=== PATIENT | male | born 1955 | race Hispanic/Latino ===

== ENCOUNTER 2021-03-04 06:26 | Emergency (ER) | payer MEDICARE ==
--- NOTE | 2021-03-07 13:20 | Electrocardiograph Report ---
[facility] Test Date: 2021-03-02 Test Time: 20:10:40 Pat Name: TO CHAVIS Department: Room: Gender: M Risk Control Field Representative: SHADI : 1955 Requested By: JONI BERNAL Order Number: [id number] Reading MD: Jazzmine Sauceda Measurements Intervals [place] Rate: 90 P: 61 ND: 154 QRS: -75 QRSD: 102 T: 58 QT: 343 QTc: 421 Interpretive Statements Sinus rhythm Left axis deviation Low voltage QRS No previous ECG available for comparison Electronically Signed On 03-07-2021 13:20:32 EDT by Jazzmine Sauceda
== END 2021-03-04 19:07 | disposition left against medical advice (07) ==
LOC: ED 06:26
DX: R07.89 Other chest pain (principal); Z53.21 Procedure and treatment not carried out due to patient leaving prior to being seen by health care provider
CPT/HCPCS: 93005

== ENCOUNTER 2022-02-09 18:15 | Emergency (ER) | payer MEDICARE ==
[2022-02-09 20:25] LABS: Basophils # (Auto) 0.1 K/mm3 (0.0-0.1); Eosinophils # (Auto) 0.2 K/mm3 (0.0-0.4); Eosinophils % (Auto) 3.6 % (0.0-4.3); Hematocrit 42.4 % (35.5-45.6); Hemoglobin 14.2 gm/dl (11.8-15.2); Lymphocytes # (Auto) 1.6 K/mm3 (1.2-5.4); Mean Corpuscular HGB Conc 34 % (32-34); Mean Corpuscular Volume 94 fl (84-94); Monocytes # (Auto) 0.4 K/mm3 (0.0-0.8); Monocytes % (Auto) 7.2 % (0.0-7.3); Platelet Count 277 K/mm3 (140-440); Red Blood Count 4.52 M/mm3 (3.65-5.03); Red Cell Distribution Width 16.5 % (13.2-15.2)
[2022-02-09 20:38] LABS: BUN/Creatinine Ratio 11; Blood Urea Nitrogen 12 mg/dL (9-20); Calcium 9.3 mg/dL (8.4-10.2); Hemolysis Index 4
--- NOTE | 2022-02-09 23:54 | Emergency Department Report ---
ED Psych HPI - General Chief Complaint: Psych Stated Complaint: PSYCH/SI Time Seen by Provider: 02/09/22 23:16 Source: patient Mode of arrival: Ambulatory - History of Present Illness Initial Comments: Mr. Kumar is a 67-year-old male with a history of anxiety and bipolar who now presents with depression and suicidal ideation has been going on for about the last 3 to 4 days progressively getting worse. Patient reported that he has been taking his medication as prescribed. Patient denies any homicidal ideation or thoughts. No fever or chills reported. No other modifying or associated factors noted. MD Complaint: suicidal ideation, feels depressed - Related Data Allergies Allergy/AdvReac Type Severity Reaction Status Date / Time No Known Allergies Allergy Unverified 03/02/21 05:24 ED Review of Systems ROS: Stated complaint: PSYCH/SI Other details as noted in HPI Comment: All other systems reviewed and negative Psychiatric: depression, suicidal thoughts. denies: homicidal thoughts ED Past Medical Hx - Past Medical History Previous Medical History?: Yes Hx Hypertension: Yes Hx Seizures: Yes Hx Psychiatric Treatment: Yes (depression, SI) Hx COPD: Yes Additional medical history: Afib - Surgical History Past Surgical History?: No ED Physical Exam - General Limitations: No Limitations General appearance: alert, in no apparent distress - Head Head exam: Present: atraumatic, normal inspection - Eye Eye exam: Present: normal appearance Pupils: Present: normal accommodation - ENT ENT exam: Present: normal exam, normal orophraynx, mucous membranes dry - Neck Neck exam: Present: normal inspection, full ROM. Absent: tenderness - Respiratory Respiratory exam: Present: normal lung sounds bilaterally. Absent: respiratory distress, accessory muscle use - Cardiovascular Cardiovascular Exam: Present: regular rate, normal rhythm, normal heart sounds - GI/Abdominal GI/Abdominal exam: Present: soft, normal bowel sounds. Absent: distended, tenderness - Extremities Exam Extremities exam: Present: normal inspection, full ROM, normal capillary refill. Absent: pedal edema - Back Exam Back exam: Present: tenderness - Neurological Exam Neurological exam: Present: alert, oriented X3 - Psychiatric Psychiatric exam: Present: normal affect, normal mood - Skin Skin exam: Present: warm, normal color ED Course Vital Signs 02/09/22 23:43 O2 Sat by Pulse 98 Oximetry ED Medical Decision Making - Lab Data Result diagrams: 02/09/22 19:44 02/09/22 19:44 - Medical Decision Making Here with depression and feeling and suicidal thoughts--differential diagnosis, including but not limited to: Encounter for behavioral health screening examination, encounter for medical screening examination--Due to these will go ahead and other routine labs studies including CBC, CMP and UA with UDS and thyroid profile in anticipation for mental health evaluation. Assessment and plan: here with concern with depressive feeling and suicidal ideation --but noted with reassuring vital signs, in no acute distress, who is cooperative, ANO x3, not homicidal but suicidal. At this point in time, this patient is cleared medically for psychiatry evaluation and recommendation. I will go ahead and order a 1013. He has not demonstrated any witnessed behavior here in the ED that would be consistent with acute decompensated psychosis. I have ordered mental health evaluation. Will go ahead and order typical laboratory studies in anticipation of mental health requests. Laboratory studies are reviewed and are unremarkable at this time. Awaiting mental health consultation and evaluation. Ultimate disposition as per mental health team. At this point in time, this patient does not appear to have an immediate medical contraindication to psychiatric admission, evaluation, consultation and placement. Patient has had his 1013 filled out by myself. Holding orders initiated. COVID swab ordered in anticipation of psychiatric placement. As needed medications are ordered. Patient remained suitable at this time for psychiatric placement, consultation and disposition. He does not appear to have an emergent medical condition present at this time. Critical care attestation.: If time is entered above; I have spent that time in minutes in the direct care of this critically ill patient, excluding procedure time. ED Disposition Clinical Impression: Suicide ideation Depression Qualifiers: Depression Type: unspecified Qualified Code(s): F32.A - Depression, unspecified Disposition: 67 [facility] Is pt being admited?: No Does the pt Need Aspirin: No Condition: Stable
[2022-02-10 00:09] LABS: Alanine Aminotransferase 17 units/L (7-56); Albumin 4.8 g/dL (3.9-5)
[2022-02-10 00:19] LABS: Free T4 (Free Thyroxine) 1.27 ng/dL (0.76-1.46)
[2022-02-10 00:20] LABS: Bilirubin,Direct < 0.2 mg/dL (0-0.2)
[2022-02-10 08:51] LABS: Amphetamine Screen,Urine Negative; Benzodiazepines Screen,Urine Negative; Cannabinoid Screen,Urine Negative; Cocaine Screen,Urine Negative; Methadone Screen,Urine Negative; Opiate Screen,Urine Negative
[2022-02-10 10:06] LABS: Bilirubin,Urine Negative (Negative); Color,Urine Straw (Yellow)
[2022-02-10 10:07] LABS: Blood,Urine 2+ (Negative); Urobilinogen,Urine < 2.0 mg/dL (<2.0)
--- NOTE | 2022-02-10 11:44 | Consultation ---
History of Present Illness - Reason for Consult Consult date: 02/10/22 Reason for consult: SI - History of Present Psychiatric Illness The patient was seen today. He is calm and cooperative. He is conversational. he says he's from [place], [place], but here with his home provider. The patient says he had been feeling a little depressed. He says he has a history of schi zophrenia. The patient says he takes clozaril, klonopin and prozac. The patient also says he has a history of heart murmurs. He says he's compliant with all of his medications. The patient says "they work pretty good to keep me stable." The patient currently denies SI/HI. He says "I feel much better now, and I'm not feeling like that." He also denies hallucinations of any kind. PAST PSYCHIATRIC HISTORY Diagnoses:Schizophrenia Suicide attempts or Self-harm behavior: Denies Prior psychiatric hospitalizations: Yes Substance Abuse history: Denies Previous psychiatric medications tried: clozaril, prozac, klonopin Outpatient treatment: Yes PAST MEDICAL HISTORY: none reported Family Psychiatric History: None reported or documented SOCIAL HISTORY Marital Status: Single Living Arrangements: Home provider Employment Status: Disabled Access to guns/weapons: none reported Education: History of Abuse: none reported Legal History: Yes REVIEW OF SYSTEMS Constitutional: Negative for weight loss ENT: Negative for stridor Respiratory: Negative for cough or hemoptysis All other systems reviewed and are negative MENTAL STATUS EXAMINATION General Appearance and Behavior: Age appropriate, fair hygiene, wearing appropriate clothes, good eye contact, cooperative with questioning Cooperation: Participating Psychomotor Behavior: Psychomotor normal Mood: better Affect and affective range: Euthymic Thought Process: Goal directed Thought Content: None Speech: normal tone and pace Suicidal Ideation: Denies Homicidal Ideation: Denies HI Hallucinations: Denies Delusions: None elicited Impulse Control: Limited Insight and Judgment: Normal Memory: Limited Attention: normal Orientation: Alert, oriented, Assessment and Plan (1) Major Depressive Disorder RECOMMENDATIONS d/c 1013 Continue home medications Risks, benefits and alternatives of medications discussed with the patient, questions answered and consent obtained from patient. PSYCHOTHERAPY: Supportive psychotherapy provided MEDICAL: Per primary team DELIRIUM PRECAUTIONS: Please re-orient patient frequently, keep lights on during the day, and minimize benzodiazepines and opiates as these medications could worsen patient's confusion. POULTRY KILLER: Per Medical Team DISPOSITION: Do not recommend acute psychiatric inpatient treatment. The patient understands that if SI/HI return he is to seek immediate assistance. FOLLOW-UP: Will sign off. Boarding Kennel Or Cattery Operator to give safety plan and all necessary resources. Thank you for the consult. Please contact with any questions and/or concerns. Case staffed with Dr. Lewis Medications and Allergies Allergies Allergy/AdvReac Type Severity Reaction Status Date / Time No Known Allergies Allergy Unverified 03/02/21 05:24 Mental Status Exam - Vital signs Last Vital Signs Temp Pulse Resp BP Pulse Ox 98 02/09/22 23:43 Results Result Diagrams: 02/09/22 19:44 02/09/22 19:44 Abnormal lab results 02/09/22 02/09/22 02/09/22 Range/Units 19:44 19:44 19:44 RDW 16.5 H (13.2-15.2) % Salicylates 1.3 L (2.8-20.0) mg/dL Acetaminophen 5.0 L (10.0-30.0) ug/mL All other labs normal.
[2022-02-10 12:18] VITALS: BP 100/62
--- NOTE | 2022-02-10 15:32 | Event Note ---
Date: 02/10/22 The patient was evaluated in the emergency department for symptoms described in the history of present illness. He/she was evaluated in the context of the global COVID-19 pandemic, which necessitated consideration that the patient might be at risk for infection with the virus that causes COVID-19. Institutional protocols and algorithms that pertain to the evaluation of patients at risk for COVID-19 are in a state of rapid change based on information released by regulatory bodies including the CDC and federal and state organizations. These policies and algorithms were followed during the patient's care in the emergency department. Please note that these policies, procedures and recommendations changed on a rapid basis. Laboratory studies, vital signs, nursing documentation, ER documentation, and psychiatric documentation are reviewed and appreciated. Nursing team reports no acute events this morning or concerns. The patient is awake and ambulating and does not appear to be in any acute distress. The patient was deemed medically suitable for psychiatric disposition and placement during his initial ER evaluation. The patient continues to remain medically suitable for psychiatric placement and disposition. He is currently pending psychiatric placement. The psychiatric team have recommended that this patient does not meet criteria for 1013 hold or involuntary confinement. They have discontinued his 1013. He will therefore be discharged with outpatient follow-up. Vital Signs 02/09/22 02/10/22 02/10/22 23:43 12:17 12:18 Temperature 98.3 F Pulse Rate 83 Respiratory 18 Rate Blood Pressure 100/62 [Left] O2 Sat by Pulse 98 95 95 Oximetry Lab Results 02/09/22 02/09/22 02/09/22 Range/Units 19:44 19:44 19:44 WBC (4.5-11.0) K/mm3 RBC (3.65-5.03) M/mm3 Hgb (11.8-15.2) gm/dl Hct (35.5-45.6) % MCV (84-94) fl MCH (28-32) pg MCHC (32-34) % RDW (13.2-15.2) % Plt Count (140-440) K/mm3 Lymph % (Auto) (13.4-35.0) % [place] % (Auto) (0.0-7.3) % Eos % (Auto) (0.0-4.3) % Baso % (Auto) (0.0-1.8) % Lymph # (Auto) (1.2-5.4) K/mm3 [place] # (Auto) (0.0-0.8) K/mm3 Eos # (Auto) (0.0-0.4) K/mm3 Baso # (Auto) (0.0-0.1) K/mm3 Seg Neutrophils % (40.0-70.0) % Seg Neutrophils # (1.8-7.7) K/mm3 Sodium 139 (137-145) mmol/L Potassium 4.2 (3.6-5.0) mmol/L Chloride 103.1 (98-107) mmol/L Carbon Dioxide 22 (22-30) mmol/L Anion Gap 18 mmol/L BUN 12 (9-20) mg/dL Creatinine 1.1 (0.8-1.3) mg/dL Estimated GFR > 60 ml/min BUN/Creatinine Ratio 11 % Glucose 85 (75-100) mg/dL Calcium 9.3 (8.4-10.2) mg/dL Total Bilirubin (0.1-1.2) mg/dL Direct Bilirubin (0-0.2) mg/dL Indirect Bilirubin mg/dL AST (5-40) units/L ALT (7-56) units/L Alkaline Phosphatase (35-129) units/L Total Protein (6.3-8.2) g/dL Albumin (3.9-5) g/dL Albumin/Globulin Ratio % TSH (0.270-4.200) mlU/mL Free T4 (0.76-1.46) ng/dL Urine Color (Yellow) Urine Turbidity (Clear) Urine pH (5.0-7.0) Ur Specific [place] (1.003-1.030) Urine Protein (Negative) mg/dL Urine Glucose (UA) (Negative) mg/dL Urine Ketones (Negative) mg/dL Urine Blood (Negative) Urine Nitrite (Negative) Ur Reducing Substances Urine Bilirubin (Negative) Urine Ictotest Urine Urobilinogen (<2.0) mg/dL Ur Leukocyte Esterase (Negative) Urine WBC (Auto) (0.0-6.0) /HPF Urine RBC (Auto) (0.0-6.0) /HPF Salicylates 1.3 L (2.8-20.0) mg/dL Urine Opiates Screen Urine Methadone Screen Acetaminophen 5.0 L (10.0-30.0) ug/mL Ur Barbiturates Screen Ur Phencyclidine Scrn Ur Amphetamines Screen U Benzodiazepines Scrn Urine Cocaine Screen U Marijuana (THC) Screen Drugs of Abuse Note Plasma/Serum Alcohol (0-0.07) % SARS-CoV-2 (PCR) (Negative) 02/09/22 02/09/22 02/09/22 Range/Units 19:44 19:44 23:00 WBC 5.9 (4.5-11.0) K/mm3 RBC 4.52 (3.65-5.03) M/mm3 Hgb 14.2 (11.8-15.2) gm/dl Hct 42.4 (35.5-45.6) % MCV 94 (84-94) fl MCH 31 (28-32) pg MCHC 34 (32-34) % RDW 16.5 H (13.2-15.2) % Plt Count 277 (140-440) K/mm3 Lymph % (Auto) 27.0 (13.4-35.0) % [place] % (Auto) 7.2 (0.0-7.3) % Eos % (Auto) 3.6 (0.0-4.3) % Baso % (Auto) 1.0 (0.0-1.8) % Lymph # (Auto) 1.6 (1.2-5.4) K/mm3 [place] # (Auto) 0.4 (0.0-0.8) K/mm3 Eos # (Auto) 0.2 (0.0-0.4) K/mm3 Baso # (Auto) 0.1 (0.0-0.1) K/mm3 Seg Neutrophils % 61.2 (40.0-70.0) % Seg Neutrophils # 3.6 (1.8-7.7) K/mm3 Sodium (137-145) mmol/L Potassium (3.6-5.0) mmol/L Chloride (98-107) mmol/L Carbon Dioxide (22-30) mmol/L Anion Gap mmol/L BUN (9-20) mg/dL Creatinine (0.8-1.3) mg/dL Estimated GFR ml/min BUN/Creatinine Ratio % Glucose (75-100) mg/dL Calcium (8.4-10.2) mg/dL Total Bilirubin 0.20 (0.1-1.2) mg/dL Direct Bilirubin < 0.2 (0-0.2) mg/dL Indirect Bilirubin 0.0 mg/dL AST 22 (5-40) units/L ALT 17 (7-56) units/L Alkaline Phosphatase 105 (35-129) units/L Total Protein 7.1 (6.3-8.2) g/dL Albumin 4.8 (3.9-5) g/dL Albumin/Globulin Ratio 2.1 % TSH (0.270-4.200) mlU/mL Free T4 (0.76-1.46) ng/dL Urine Color (Yellow) Urine Turbidity (Clear) Urine pH (5.0-7.0) Ur Specific [place] (1.003-1.030) Urine Protein (Negative) mg/dL Urine Glucose (UA) (Negative) mg/dL Urine Ketones (Negative) mg/dL Urine Blood (Negative) Urine Nitrite (Negative) Ur Reducing Substances Urine Bilirubin (Negative) Urine Ictotest Urine Urobilinogen (<2.0) mg/dL Ur Leukocyte Esterase (Negative) Urine WBC (Auto) (0.0-6.0) /HPF Urine RBC (Auto) (0.0-6.0) /HPF Salicylates (2.8-20.0) mg/dL Urine Opiates Screen Urine Methadone Screen Acetaminophen (10.0-30.0) ug/mL Ur Barbiturates Screen Ur Phencyclidine Scrn Ur Amphetamines Screen U Benzodiazepines Scrn Urine Cocaine Screen U Marijuana (THC) Screen Drugs of Abuse Note Plasma/Serum Alcohol < 0.01 (0-0.07) % SARS-CoV-2 (PCR) (Negative) 02/09/22 02/10/22 02/10/22 Range/Units 23:00 08:02 08:02 WBC (4.5-11.0) K/mm3 RBC (3.65-5.03) M/mm3 Hgb (11.8-15.2) gm/dl Hct (35.5-45.6) % MCV (84-94) fl MCH (28-32) pg MCHC (32-34) % RDW (13.2-15.2) % Plt Count (140-440) K/mm3 Lymph % (Auto) (13.4-35.0) % [place] % (Auto) (0.0-7.3) % Eos % (Auto) (0.0-4.3) % Baso % (Auto) (0.0-1.8) % Lymph # (Auto) (1.2-5.4) K/mm3 [place] # (Auto) (0.0-0.8) K/mm3 Eos # (Auto) (0.0-0.4) K/mm3 Baso # (Auto) (0.0-0.1) K/mm3 Seg Neutrophils % (40.0-70.0) % Seg Neutrophils # (1.8-7.7) K/mm3 Sodium (137-145) mmol/L Potassium (3.6-5.0) mmol/L Chloride (98-107) mmol/L Carbon Dioxide (22-30) mmol/L Anion Gap mmol/L BUN (9-20) mg/dL Creatinine (0.8-1.3) mg/dL Estimated GFR ml/min BUN/Creatinine Ratio % Glucose (75-100) mg/dL Calcium (8.4-10.2) mg/dL Total Bilirubin (0.1-1.2) mg/dL Direct Bilirubin (0-0.2) mg/dL Indirect Bilirubin mg/dL AST (5-40) units/L ALT (7-56) units/L Alkaline Phosphatase (35-129) units/L Total Protein (6.3-8.2) g/dL Albumin (3.9-5) g/dL Albumin/Globulin Ratio % TSH 2.560 (0.270-4.200) mlU/mL Free T4 1.27 (0.76-1.46) ng/dL Urine Color Straw (Yellow) Urine Turbidity Clear (Clear) Urine pH 5.0 (5.0-7.0) Ur Specific [place] 1.020 (1.003-1.030) Urine Protein 30 mg/dl (Negative) mg/dL Urine Glucose (UA) Negative (Negative) mg/dL Urine Ketones Trace (Negative) mg/dL Urine Blood 2+ (Negative) Urine Nitrite Negative (Negative) Ur Reducing Substances Not Reportable Urine Bilirubin Negative (Negative) Urine Ictotest Not Reportable Urine Urobilinogen < 2.0 (<2.0) mg/dL Ur Leukocyte Esterase Moderate (Negative) Urine WBC (Auto) 4.0 (0.0-6.0) /HPF Urine RBC (Auto) 3.0 (0.0-6.0) /HPF Salicylates (2.8-20.0) mg/dL Urine Opiates Screen Negative Urine Methadone Screen Negative Acetaminophen (10.0-30.0) ug/mL Ur Barbiturates Screen Negative Ur Phencyclidine Scrn Negative Ur Amphetamines Screen Negative U Benzodiazepines Scrn Negative Urine Cocaine Screen Negative U Marijuana (THC) Screen Negative Drugs of Abuse Note Disclamer Plasma/Serum Alcohol (0-0.07) % SARS-CoV-2 (PCR) (Negative) 02/10/22 Range/Units 09:10 WBC (4.5-11.0) K/mm3 RBC (3.65-5.03) M/mm3 Hgb (11.8-15.2) gm/dl Hct (35.5-45.6) % MCV (84-94) fl MCH (28-32) pg MCHC (32-34) % RDW (13.2-15.2) % Plt Count (140-440) K/mm3 Lymph % (Auto) (13.4-35.0) % [place] % (Auto) (0.0-7.3) % Eos % (Auto) (0.0-4.3) % Baso % (Auto) (0.0-1.8) % Lymph # (Auto) (1.2-5.4) K/mm3 [place] # (Auto) (0.0-0.8) K/mm3 Eos # (Auto) (0.0-0.4) K/mm3 Baso # (Auto) (0.0-0.1) K/mm3 Seg Neutrophils % (40.0-70.0) % Seg Neutrophils # (1.8-7.7) K/mm3 Sodium (137-145) mmol/L Potassium (3.6-5.0) mmol/L Chloride (98-107) mmol/L Carbon Dioxide (22-30) mmol/L Anion Gap mmol/L BUN (9-20) mg/dL Creatinine (0.8-1.3) mg/dL Estimated GFR ml/min BUN/Creatinine Ratio % Glucose (75-100) mg/dL Calcium (8.4-10.2) mg/dL Total Bilirubin (0.1-1.2) mg/dL Direct Bilirubin (0-0.2) mg/dL Indirect Bilirubin mg/dL AST (5-40) units/L ALT (7-56) units/L Alkaline Phosphatase (35-129) units/L Total Protein (6.3-8.2) g/dL Albumin (3.9-5) g/dL Albumin/Globulin Ratio % TSH (0.270-4.200) mlU/mL Free T4 (0.76-1.46) ng/dL Urine Color (Yellow) Urine Turbidity (Clear) Urine pH (5.0-7.0) Ur Specific [place] (1.003-1.030) Urine Protein (Negative) mg/dL Urine Glucose (UA) (Negative) mg/dL Urine Ketones (Negative) mg/dL Urine Blood (Negative) Urine Nitrite (Negative) Ur Reducing Substances Urine Bilirubin (Negative) Urine Ictotest Urine Urobilinogen (<2.0) mg/dL Ur Leukocyte Esterase (Negative) Urine WBC (Auto) (0.0-6.0) /HPF Urine RBC (Auto) (0.0-6.0) /HPF Salicylates (2.8-20.0) mg/dL Urine Opiates Screen Urine Methadone Screen Acetaminophen (10.0-30.0) ug/mL Ur Barbiturates Screen Ur Phencyclidine Scrn Ur Amphetamines Screen U Benzodiazepines Scrn Urine Cocaine Screen U Marijuana (THC) Screen Drugs of Abuse Note Plasma/Serum Alcohol (0-0.07) % SARS-CoV-2 (PCR) Negative (Negative)
== END 2022-02-10 17:26 | disposition home or self-care (01) ==
LOC: ED 18:15
DX: R45.851 Suicidal ideations (principal); F32.A Depression, unspecified; I10 Essential (primary) hypertension; R56.9 Unspecified convulsions; J44.1 Chronic obstructive pulmonary disease with (acute) exacerbation; Z20.822 Contact with and (suspected) exposure to COVID-19
CPT/HCPCS: 36415; 80048; 80076; 80307; 81001; 84439; 84443; 85025; 99284; U0003; 80320; G0480

== ENCOUNTER 2022-02-14 18:23 | Emergency (ER) | payer MEDICARE ==
[2022-02-14] MEDS ORDERED: PHENYTOIN 1,000 MG in SODIUM CHLORIDE 0.9% 250ML 250 ML IV ONE (18:48)
[2022-02-14] MEDS ORDERED: SODIUM CHLORIDE 0.9% 1000 ML 1,000 ML IV ONE (18:48)
[2022-02-14 19:43] LABS: Basophils % (Auto) 0.3 % (0.0-1.8); Eosinophils % (Auto) 0.2 % (0.0-4.3); Hematocrit 42.3 % (35.5-45.6); Hemoglobin 14.1 gm/dl (11.8-15.2); Lymphocytes # (Auto) 0.5 K/mm3 (1.2-5.4); Lymphocytes % (Auto) 3.8 % (13.4-35.0); Mean Corpuscular HGB Conc 33 % (32-34); Mean Corpuscular Volume 94 fl (84-94); Monocytes # (Auto) 0.9 K/mm3 (0.0-0.8); Monocytes % (Auto) 6.4 % (0.0-7.3); Platelet Count 270 K/mm3 (140-440); Red Blood Count 4.51 M/mm3 (3.65-5.03); Red Cell Distribution Width 16.4 % (13.2-15.2)
[2022-02-14 19:51] LABS: Calcium 9.1 mg/dL (8.4-10.2)
[2022-02-14] MEDS ORDERED: PHENYTOIN 100 MG CAPSULE.ER PO ONE (20:19)
--- NOTE | 2022-02-14 20:21 | Emergency Department Report ---
ED General Adult HPI - General Chief complaint: Seizure Stated complaint: SEIZURE PUI?: No Time Seen by Provider: 02/14/22 18:46 Source: patient, EMS Mode of arrival: Stretcher Limitations: No Limitations - History of Present Illness Initial comments: pt is homeless, had history of seizure and supposed to take dilantin but he do esn;t take it any more , no head injury -: Sudden, hour(s) Severity scale (0 -10): 0 Improves with: none Worsens with: none Associated Symptoms: denies: denies other symptoms, confusion, chest pain - Related Data Allergies Allergy/AdvReac Type Severity Reaction Status Date / Time No Known Allergies Allergy Unverified 02/14/22 18:30 ED Review of Systems ROS: Stated complaint: SEIZURE Other details as noted in HPI Constitutional: denies: chills, fever Eyes: denies: eye pain, eye discharge, vision change ENT: denies: ear pain, throat pain Respiratory: denies: cough, shortness of breath, wheezing Cardiovascular: denies: chest pain, palpitations Endocrine: no symptoms reported Gastrointestinal: denies: abdominal pain, nausea, diarrhea Genitourinary: denies: urgency, dysuria Musculoskeletal: denies: back pain, joint swelling, arthralgia Skin: denies: rash, lesions Neurological: denies: headache, weakness, paresthesias Psychiatric: denies: anxiety, depression Hematological/Lymphatic: denies: easy bleeding, easy bruising ED Past Medical Hx - Past Medical History Hx Hypertension: Yes Hx Seizures: Yes Hx Psychiatric Treatment: Yes (depression, SI) Hx COPD: Yes Additional medical history: Afib ED Physical Exam - General Limitations: No Limitations General appearance: alert, in no apparent distress - Head Head exam: Present: atraumatic, normocephalic - Eye Eye exam: Present: normal appearance - ENT ENT exam: Present: mucous membranes moist - Neck Neck exam: Present: normal inspection - Respiratory Respiratory exam: Present: normal lung sounds bilaterally. Absent: respiratory distress - Cardiovascular Cardiovascular Exam: Present: regular rate, normal rhythm. Absent: systolic murmur, diastolic murmur, rubs, gallop - GI/Abdominal GI/Abdominal exam: Present: soft, normal bowel sounds - Rectal Rectal exam: Present: deferred - Extremities Exam Extremities exam: Present: normal inspection - Back Exam Back exam: Present: normal inspection - Neurological Exam Neurological exam: Present: alert, oriented X3 - Psychiatric Psychiatric exam: Present: normal affect, normal mood - Skin Skin exam: Present: warm, dry, intact, normal color. Absent: rash ED Course Vital Signs 02/14/22 18:28 Temperature 98.7 F Pulse Rate 114 H Respiratory 18 Rate Blood Pressure 132/78 [Left] O2 Sat by Pulse 94 Oximetry ED Medical Decision Making - Lab Data Result diagrams: 02/14/22 18:59 02/14/22 18:59 - Medical Decision Making work up unremrkable , alert and awake, refilled for his dilantin , given dilantin po Critical care attestation.: If time is entered above; I have spent that time in minutes in the direct care of this critically ill patient, excluding procedure time. ED Disposition Clinical Impression: Seizure Disposition: 01 HOME / SELF CARE / HOMELESS Is pt being admited?: No Does the pt Need Aspirin: No Condition: Stable Instructions: Epilepsy, [id number], Seizure, Adult
[2022-02-14 23:36] VITALS: BP 113/76
[2022-02-14 23:36] LABS: Amphetamine Screen,Urine PRESUMPTIVE NEGATIVE; Benzodiazepines Screen,Urine PRESUMPTIVE NEGATIVE; Cannabinoid Screen,Urine PRESUMPTIVE NEGATIVE; Cocaine Screen,Urine PRESUMPTIVE NEGATIVE; Methadone Screen,Urine PRESUMPTIVE NEGATIVE; Opiate Screen,Urine PRESUMPTIVE NEGATIVE
[2022-02-14 23:42] LABS: Bilirubin,Urine Negative (Negative); Blood,Urine 3+ (Negative); Color,Urine Straw (Yellow)
== END 2022-02-14 23:36 | disposition home or self-care (01) ==
LOC: ED 18:23
DX: R56.9 Unspecified convulsions (principal); I10 Essential (primary) hypertension; F32.A Depression, unspecified; J44.1 Chronic obstructive pulmonary disease with (acute) exacerbation
CPT/HCPCS: 80053; 80307; 81001; 85025; 87086; 96360; 99284; J1165; J7030; J7050; 80320; G0480

== ENCOUNTER 2022-02-16 12:18 | Emergency (ER) | payer MEDICARE ==
--- NOTE | 2022-02-16 13:06 | XRay Report ---
CHEST 2 VIEWS INDICATION / CLINICAL INFORMATION: chest pain. COMPARISON: 03/02/2021 FINDINGS: SUPPORT DEVICES: None. HEART / MEDIASTINUM: No significant abnormality. LUNGS / PLEURA: No significant pulmonary or pleural abnormality. No pneumothorax. ADDITIONAL FINDINGS: No significant additional findings. IMPRESSION: 1. No acute findings. Signer Name: Prakash Edwards MD Signed: 02/16/2022 1:01 PM Workstation Name: [id number]
[2022-02-16 15:24] LABS: Basophils % (Auto) 0.1 % (0.0-1.8); Hematocrit 40.3 % (35.5-45.6); Hemoglobin 13.6 gm/dl (11.8-15.2); Lymphocytes # (Auto) 0.9 K/mm3 (1.2-5.4); Lymphocytes % (Auto) 5.8 % (13.4-35.0); Mean Corpuscular HGB Conc 34 % (32-34); Mean Corpuscular Volume 93 fl (84-94); Monocytes # (Auto) 1.3 K/mm3 (0.0-0.8); Monocytes % (Auto) 8.1 % (0.0-7.3); Platelet Count 237 K/mm3 (140-440); Red Blood Count 4.32 M/mm3 (3.65-5.03); Red Cell Distribution Width 15.5 % (13.2-15.2)
[2022-02-16 15:26] LABS: Alanine Aminotransferase 16 units/L (7-56); Albumin 4.7 g/dL (3.9-5); BUN/Creatinine Ratio 11; Blood Urea Nitrogen 14 mg/dL (9-20); Calcium 9.3 mg/dL (8.4-10.2); Hemolysis Index 0
--- NOTE | 2022-02-16 16:22 | Emergency Department Report ---
ED Chest Pain HPI - General Chief Complaint: Chest Pain Stated Complaint: CHEST PAIN Time Seen by Provider: 02/16/22 14:42 Source: patient Mode of arrival: Ambulatory Limitations: No Limitations - History of Present Illness Initial Comments: 67-year-old white male with a past medical history of seizures presents to the emergency department complaining of chest pain. He states that he has been waiting in the waiting room for several hours and has not gotten a ride home yet and needs someone to call a cab for him. When notified by the nurse that they could not since he was already discharged and that they attempted to call medical transport before he was discharged, patient then stated that he had chest pain. At initial assessment by this provider, patient denied chest pain, shortness of breath, dizziness, nausea, vomiting, and diaphoresis. MD Complaint: chest pain -: Sudden Severity scale (0 -10): 0 Consistency: now resolved re: denies: nausea, vomting, diaphoresis, dyspnea, sense of impending doom Other Symptoms: denies: cough, fever, syncope, rash, acid taste in mouth, leg swelling, palpitations, burping Treatments Prior to Arrival: none Aspirin use within the Past 7 Days: (0) No - Related Data Previous Rx's Medication Instructions Recorded Last Taken Type Phenytoin [Dilantin] 100 mg PO Q8HR #30 capsule 02/14/22 Unknown Rx Allergies Allergy/AdvReac Type Severity Reaction Status Date / Time No Known Allergies Allergy Verified 02/16/22 12:37 Heart Score - HEART Score History: Slightly suspicious EKG: Normal Age: 45-65 Risk factors: 1-2 risk factors Troponin: < normal limit HEART Score: 2 - EKG Read Time Time EKG Completed: 12:45 EKG Read Time: 12:52 - Critical Actions Critical Actions: 0-3 pts:0.9-1.7%risk of adverse cardiac event.Candidate for discharge ED Review of Systems ROS: Stated complaint: CHEST PAIN Other details as noted in HPI Comment: All other systems reviewed and negative Constitutional: denies: chills, fever Eyes: denies: vision change Respiratory: denies: shortness of breath Cardiovascular: chest pain. denies: palpitations, dyspnea on exertion, orthopn ea, edema, syncope, paroxysmal nocturnal dyspnea Gastrointestinal: denies: abdominal pain, nausea, vomiting Genitourinary: denies: urgency, dysuria Musculoskeletal: denies: back pain Neurological: denies: headache, weakness, numbness, paresthesias, confusion, abnormal gait ED Past Medical Hx - Past Medical History Hx Hypertension: Yes Hx Seizures: Yes Hx Psychiatric Treatment: Yes (depression, SI) Hx COPD: Yes Additional medical history: Afib - Medications Home Medications: Home Medications Medication Instructions Recorded Confirmed Last Taken Type Phenytoin [Dilantin] 100 mg PO Q8HR #30 capsule 02/14/22 Unknown Rx ED Physical Exam - General Limitations: No Limitations General appearance: alert, in no apparent distress - Head Head exam: Present: atraumatic, normocephalic - Eye Eye exam: Present: normal appearance. Absent: conjunctival injection, periorbital swelling, periorbital tenderness - ENT ENT exam: Present: normal exam, normal orophraynx - Neck Neck exam: Present: normal inspection, full ROM. Absent: tenderness, lymphadenopathy - Respiratory Respiratory exam: Present: normal lung sounds bilaterally. Absent: respiratory distress, wheezes, rales, rhonchi, chest wall tenderness - Cardiovascular Cardiovascular Exam: Present: regular rate, normal heart sounds - GI/Abdominal GI/Abdominal exam: Present: soft, normal bowel sounds. Absent: distended, tenderness, guarding, rebound, rigid - Extremities Exam Extremities exam: Present: normal inspection, full ROM, normal capillary refill. Absent: tenderness, pedal edema, joint swelling, calf tenderness - Back Exam Back exam: Present: normal inspection. Absent: CVA tenderness (R), CVA tenderness (L), vertebral tenderness - Neurological Exam Neurological exam: Present: alert, oriented X3, normal gait - Psychiatric Psychiatric exam: Present: normal affect, normal mood - Skin Skin exam: Present: warm, dry, intact, normal color ED Course Vital Signs 02/16/22 02/16/22 12:28 15:55 Temperature 97 F L 98.6 F Pulse Rate 100 H 88 Respiratory 18 16 Rate Blood Pressure 138/78 Blood Pressure 154/71 [Left] O2 Sat by Pulse 98 96 Oximetry - Reevaluation(s) Reevaluation #1: 02/16/22 16:21 Patient denies chest pain, shortness of breath, nausea, vomiting, and dizziness. He states that he has not had any chest pain but he needs a ride home. He states that he needs someone to call him a cab or set up medical transport for him. ADRIAN score - Adrian Score Age > 65: (0) No Aspirin use within the Past 7 Days: (0) No 3 or more CAD Risk Factors: (0) No 2 or more Angina events in past 24 hrs: (1) Yes Known CAD with more than 50% Stenosis: (0) No Elevated Cardiac Markers: (0) No ST Deviation Greater than 0.5mm: (0) No DARIAN Score: 1 ED Medical Decision Making - Lab Data Result diagrams: 02/16/22 14:07 02/16/22 14:15 - EKG Data When compared to previous EKG there are: no significant change - Radiology Data Radiology results: report reviewed, image reviewed Chest x-ray: FINDINGS: SUPPORT DEVICES: None. HEART / MEDIASTINUM: No significant abnormality. LUNGS / PLEURA: No significant pulmonary or pleural abnormality. No pneumothorax. ADDITIONAL FINDINGS: No significant additional findings. IMPRESSION: 1. No acute findings. - Medical Decision Making 67-year-old white male with a past medical history of seizures presents to the emergency department complaining of chest pain. He states that he has been waiting in the waiting room for several hours and has not gotten a ride home yet and needs someone to call a cab for him. When notified by the nurse that they could not since he was already discharged and that they attempted to call medical transport before he was discharged, patient then stated that he had chest pain. At initial assessment by this provider, patient denied chest pain, shortness of breath, dizziness, nausea, vomiting, and diaphoresis. Physical exam unremarkable. Patient denies chest pain and shortness of breath at this time but states that he did have chest pain 3 days ago that has since resolved. EKG without any acute ischemic changes noted, troponin within normal limits, and chest x-ray without any acute abnormalities noted. Low suspicion for ACS. Patient will be discharged home to follow-up with cardiology for further evaluation and management. He is advised to return to the emergency department as needed. He verbalizes understanding of and agreement with plan of care. Critical care attestation.: If time is entered above; I have spent that time in minutes in the direct care of this critically ill patient, excluding procedure time. ED Disposition Clinical Impression: Chest pain Qualifiers: Chest pain type: unspecified Qualified Code(s): R07.9 - Chest pain, unspecified Disposition: 01 HOME / SELF CARE / HOMELESS Is pt being admited?: No Does the pt Need Aspirin: No Condition: Stable Instructions: Nonspecific Chest Pain, Adult, [id number] Additional Instructions: Follow-up with your primary care provider or cardiology for further evaluation and management. Return to the emergency department as needed. Referrals: CHERELLE GILLIS MD [Staff Physician] - 3-5 Days ANN PATEL MD [Staff Physician] - 3-5 Days Time of Disposition: 16:22
[2022-02-16 16:45] VITALS: BP 138/78
--- NOTE | 2022-02-18 10:14 | Electrocardiograph Report ---
[facility] Test Date: 2022-02-16 Test Time: 12:45:46 Pat Name: TO CHAVIS Department: Room: Gender: M Special Events Director: CARINA : 1955 Requested By: RONEY SIMS Order Number: [id number] Reading MD: Jazzmine Sauceda Measurements Intervals [place] Rate: 109 P: 78 ME: 185 QRS: -83 QRSD: 112 T: 73 QT: 353 QTc: 475 Interpretive Statements Sinus tachycardia Left anterior fascicular block Compared to ECG 03/02/2021 20:10:40 Sinus rate has increased Electronically Signed On 02-18-2022 10:14:18 EDT by Jazzmine Sauceda
== END 2022-02-16 16:45 | disposition home or self-care (01) ==
LOC: ED 12:18
DX: R07.9 Chest pain, unspecified (principal); I10 Essential (primary) hypertension; R56.9 Unspecified convulsions; F32.A Depression, unspecified; J44.1 Chronic obstructive pulmonary disease with (acute) exacerbation; Z79.899 Other long term (current) drug therapy
CPT/HCPCS: 36415; 71046; 80053; 83690; 84484; 85025; 93005; 99284

== ENCOUNTER 2022-03-11 17:23 | Emergency (ER) | payer MEDICARE ==
[2022-03-12 04:57] VITALS: BP 115/62
== END 2022-03-11 23:00 | disposition left against medical advice (07) ==
LOC: ED 17:23
DX: H91.90 Unspecified hearing loss, unspecified ear (principal); Z53.21 Procedure and treatment not carried out due to patient leaving prior to being seen by health care provider